=== PATIENT | male | born 1960 | race Two or more races ===

== ENCOUNTER → 2024-04-13 | Outpatient (CLI) | payer MEDICAID, SELFPAY ==
--- NOTE | 2024-04-13 14:30 | XR_ITS ---
Examination: Ultrasound soft tissue neck Technique: Grayscale sonographic images soft tissue neck Exam date and time: April 13, 2024 at 1448 hrs. Indications: Sore throat one year. Findings: Bilateral cervical lymph nodes, the largest on the right side 2.4 x 0.9 cm, 1.6 x 0.90, 1.9 x 1.0 cm, the largest on the left side 2.5 x 5.8 cm, 2.2 x 1.2 cm, 1.0 x 2.6 cm Impression: Significant cervical lymphadenopathy Consider correlation with CT soft tissue neck post intravenous contrast follow-up
== END | disposition home or self-care (01) ==
PROVIDERS: PCP Nurse Practitioner Family; Referring Provider Nurse Practitioner Family; Visit Provider Nurse Practitioner Family
DX: R59.0 Localized enlarged lymph nodes (principal)
CPT/HCPCS: 76536

== ENCOUNTER → 2024-06-30 | Outpatient (CLI) | payer MEDICAID, SELFPAY ==
--- NOTE | 2024-06-30 14:00 | XR_ITS ---
Examination: CT soft tissue neck, with intravenous contrast. 2-D coronal reconstructions. 2-D sagittal reconstructions. Date and time of exam :June 30, 2024 1443 hours INDICATIONS: Sore throat and palpable enlarged lymph nodes in the neck one year. CTDI: vol (mGy):12.6 DLP: (mGycm): 379 Technique: 1.25 mm axial sections of the neck of the obtained. Coronal and sagittal reconstructions have been obtained. Intravenous contrast administered 50 cc Isovue-370. Low dose protocols were performed. One or more of the following dose reduction techniques were used; automated exposure control, adjustment of the mA and/or KV according to patient size, use of iterative reconstruction technique. Findings: Significant maxillary sinus disease Symmetrical nasopharynx oropharynx Subcentimeter bilateral carotid triangle lymph nodes Symmetrical submandibular glands The larynx appears normal Thyroid lobes are not enlarged Normal epiglottis Moderate disc narrowing C3-C4 C6-C7 IMPRESSION: Significant maxillary sinus disease No pathologic cervical lymphadenopathy
== END | disposition home or self-care (01) ==
LOC: CCTX 14:09
PROVIDERS: PCP Nurse Practitioner Family; Referring Provider Nurse Practitioner Family; Visit Provider Nurse Practitioner Family
DX: J32.0 Chronic maxillary sinusitis (principal)
CPT/HCPCS: 70491; A4649; Q9967